=== PATIENT | male | born 1990 ===

== ENCOUNTER 2017-02-13 22:22 | Emergency (ER) | payer MEDICAID ==
[2017-02-13 23:11] VITALS: TEMP 99.5
--- NOTE | 2017-02-14 00:23 | ED PDOC ---
Arrival/HPI - General Chief Complaint: Lower Extremity Problem/Injury Time Seen by Provider: 02/14/17 00:16 Historian: Patient - History of Present Illness Narrative History of Present Illness (Text): 02/14/17 00:22 Samuel Pérez is a 26 year old male, with no significant past medical history, who presents to the ED complaining of redness with some swelling to right lateral foot since yesterday morning. Patient denies any recent trauma/ injury, notes [place] the beach [place]. Patient denies any fever , chills, weakness/numbness/tingling in the extremity, discharge, or any other complaints. Time/Duration: Other (yesterday morning) Symptom Onset: Gradual Symptom Course: Unchanged Activities at Onset: Rest, Light Context: Home Past Medical History - Provider Review Nursing Documentation Reviewed: Yes - Hematological/Oncological Other/Comment: Andressa in youth - Psychiatric Hx Substance Use: (on) Family/Social History - Physician Review Nursing Documentation Reviewed: Yes Family/Social History: Unknown Family HX Smoking Status: n Hx Alcohol Use: (occ) Hx Substance Use: (on) Allergies/Home Meds Allergies/Adverse Reactions: Allergies No Known Allergies Allergy (Verified 02/13/17 23:57) Review of Systems - Physician Review All systems were reviewed & negative as marked: Yes - Review of Systems Constitutional: Normal. absent: Fevers Eyes: Normal ENT: Normal Respiratory: Normal. absent: SOB, Cough Cardiovascular: Normal. absent: Chest Pain Gastrointestinal: Normal. absent: Abdominal Pain, Diarrhea, Nausea, Vomiting Genitourinary Male: Normal. absent: Dysuria, Frequency, Hematuria, Urinary Output Changes Musculoskeletal: Normal. absent: Back Pain, Neck Pain Skin: Other (+right lateral foot redness) Neurological: Normal Endocrine: Normal Hemo/Lymphatic: Normal Psychiatric: Normal Physical Exam Vital Signs Reviewed: Yes Vital Signs Temp Pulse Resp BP Pulse Ox 02/13/17 23:05 99.5 F 79 18 116/70 97 Temperature: Afebrile Blood Pressure: Normal Pulse: Regular Respiratory Rate: Normal Appearance: Positive for: Well-Appearing, Non-Toxic, Comfortable Pain Distress: None Mental Status: Positive for: Alert and Oriented X 3 - Systems Exam Head: Present: Atraumatic, Normocephalic Pupils: Present: PERRL Extroacular Muscles: Present: EOMI Conjunctiva: Present: Normal Mouth: Present: Moist Mucous Membranes Neck: Present: Normal Range of Motion Respiratory/Chest: Present: Clear to Auscultation, Good Air Exchange. No: Respiratory Distress, Accessory Muscle Use Cardiovascular: Present: Regular Rate and Rhythm, Normal S1, S2. No: Murmurs Abdomen: Present: Normal Bowel Sounds. No: Tenderness, Distention, Peritoneal Signs Upper Extremity: Present: Normal Inspection. No: Cyanosis, Edema Lower Extremity: Present: NORMAL PULSES, Normal ROM, Erythema (Area of erythema to lateral right foot with slight palpable tenderness), Neurovascularly Intact, Capillary Refill < 2 s. No: Edema, Cyanosis, Deformity, Temperature Abnormalties Neurological: Present: GCS=15, CN II-XII Intact, Speech Normal Skin: Present: Warm, Dry, Normal Color. No: Rashes Psychiatric: Present: Alert, Oriented x 3, Normal Insight, Normal Concentration Medical Decision Making ED Course and Treatment: 02/14/17 00:22 Impression: 26 year old male c/o redness/swelling to right lateral foot since yesterday morning. Differential Diagnosis included but are not limited to: cellulitis Plan: -- XR Right Foot - Reassess and disposition Progress Notes: 02/14/17 03:05 reviewed radiology, XR Right Foot shows no fracture, no foreign body. 02/14/17 03:07 On reevaluation the patient feels better and is in no acute distress. I have discussed the results and plan with the patient, who expresses understanding. Patient given the opportunity to ask question, all questions were answered and there is agreement with the plan to discharge the patient home. Patient is stable for discharge. Patient was instructed to follow up with physician/clinic in 1-2 days or return if symptoms persist/worsen or new concerning symptoms arise. - Lab Interpretations Lab Results: 02/14/17 00:05 Lab Results 02/14/17 00:05: WBC 8.4, RBC 5.27, Hgb 14.1, Hct 41.4 L, MCV 78.6 L, MCH 26.8, MCHC 34.1, RDW 14.3, Plt Count 223, MPV 10.7 I have reviewed the lab results: Yes Interpretation: No clinic. 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 I have reviewed the chart and agree that the record accurately reflects my personal performance of the history, physical exam, medical decision making, and the department course for this patient. I have also personally directed, reviewed, and agree with the discharge instructions and disposition. Disposition/Present on Arrival - Present on Arrival Any Indicators Present on Arrival: No History of DVT/PE: No History of Uncontrolled Diabetes: No Urinary Catheter: No History of Decub. Ulcer: No History Surgical Site Infection Following: None - Disposition Have Diagnosis and Disposition been Completed?: Yes Diagnosis: Cellulitis Disposition: HOME/ ROUTINE Disposition Time: 03:07 Patient Plan: Discharge Patient Problems: Current Active Problems Problem Status Onset Cellulitis Acute Condition: GOOD Discharge Instructions (ExitCare): Cellulitis (ED) Additional Instructions: Take meds as prescribed/ follow up with your doctor this week/if no improvement/ worsening symptoms return to the emergency room Prescriptions: Sulfamethoxazole/Trimethoprim [Bactrim DS 800 mg-160 mg] 1 tab PO BID #14 tab Cephalexin [cephalexin] 500 mg PO TID #21 cap Referrals: Sera Leon, [Primary Care Provider] - Follow up with primary
[2017-02-14 01:13] LABS: HEMOGLOBIN 14.1 gm/dL (14.0-18.0); MEAN CELL VOLUME 78.6 fL (80.0-105.0); MEAN CORPUSCULAR HEMOGLOBIN 26.8 pg (25.0-35.0); MEAN CORPUSCULAR HGB CONC 34.1 g/dl (31.0-37.0); MEAN PLATELET VOLUME 10.7 fl (7.0-11.0); RBC 5.27 10^6/uL (3.5-6.1); RED CELL DISTRIBUTION WIDTH 14.3 % (11.5-14.5); WHITE BLOOD COUNT 8.4 10^3/ul (4.5-11.0)
[2017-02-14] MEDS ORDERED: TDAP Vaccine 0.5 mL Syr IM ONE (03:05)
[2017-02-14] MEDS ORDERED: Tmp-Smz 800 mg-160 mg DS Tab PO STA (03:06)
[2017-02-14 03:48] VITALS: BP 120/70; PULSE 98; RESP 16; O2SAT 98
--- NOTE | 2017-02-14 08:11 | RAD ---
PROCEDURE: Right Foot Radiographs. HISTORY: r/o FB COMPARISON: None. FINDINGS: BONES: Normal. No fracture. JOINTS: Normal. SOFT TISSUES: Normal. OTHER FINDINGS: None. IMPRESSION: Normal right foot radiographs.
== END 2017-02-14 03:48 | disposition home or self-care (01) ==
LOC: ED 22:22
DX: L03.115 Cellulitis of right lower limb (principal)

== ENCOUNTER 2017-12-08 21:36 | Emergency (ER) | payer OTHER, MEDICAID ==
[2017-12-08 22:04] VITALS: BMI 30.8
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
[2017-12-08 22:08] VITALS: RESP 20; TEMP 98.6
[2017-12-08 23:14] VITALS: BP 130/78; PULSE 69; O2SAT 97
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
== END 2017-12-08 22:56 | disposition home or self-care (01) ==
LOC: ED 21:36
DX: S39.012A Strain of muscle, fascia and tendon of lower back, initial encounter (principal); V43.52XA Car driver injured in collision with other type car in traffic accident, initial encounter
CPT/HCPCS: 72110; 96372; 99283; J1885